=== PATIENT | male | born 1990 | race Caucasian/White ===

== ENCOUNTER 2019-06-28 19:39 | Emergency (ER) | payer MEDICARE, MEDICAID, SELFPAY ==
[2019-06-28 19:44] VITALS: BP 145/98; PULSE 104; RESP 18; TEMP 37.1; O2SAT 95
--- NOTE | 2019-06-28 20:00 | W.ED.GENAD ---
Discharge Plan Disposition Patient Disposition: HOME Discharge Details Chief Complaint: Orthopedic Clinical Impression: Loose cast Primary Care Provider: Sue Manley ED Provider: Karri Hodge Home Meds and New Rx's Prescriptions: Continued buprenorphine-naloxone [Suboxone] 1 EACH film 20 mg PO DAILY RF: 0 ibuprofen 800 MG tablet 800 mg PO TID PRN (Reason: Pain) Qty: 10 RF: 0 gabapentin 300 mg Capsule 900 mg PO TID RF: 0 Discharge Instructions Additional Instructions: Please follow-up with your orthopedic surgeon tomorrow. Return to the ER for any worsening or new concerning symptoms. Medical Decision Making 29-year-old male here 3 weeks status post thumb fracture, casted, cast is cracking over volar, medial wrist. Cast is intact over his thumb and providing immobilization to fractured digit. An Bar wrap was applied to provide support and patient was instructed to follow-up with his orthopedic surgeon tomorrow for cast removal and/or replacement. HPI General Mode of arrival: ambulatory. Date/Time Provider Initiated Documentation: 06/28/19 19:54. Limitations to Documentation: no limitations. Information obtained by: patient. HPI Narrative: 29-year-old male presents with concern that his cast is cracked. Patient notes he broke his thumb 3 weeks ago and had cast placed by Dr. Vargas at [facility]. He notes today cast seem to be loose. No pain. Related Data Home Medications Medication Instructions Recorded Confirmed buprenorphine-naloxone [Suboxone] 20 mg PO DAILY 11/08/15 04/03/17 ibuprofen 800 mg PO TID PRN #10 tablet 04/03/17 gabapentin 900 mg PO TID 06/28/19 06/28/19 Previous Rx's Medication Instructions Recorded ibuprofen 800 mg PO TID PRN #10 tablet 04/03/17 Allergies Allergy/AdvReac Type Severity Reaction Status Date / Time methocarbamol [From Robaxin] Allergy Nausea Unverified 06/28/19 19:46 General Stated Complaint: Orthopedic KACEY: 4 Review of Systems Musculoskeletal Musculoskeletal: Denies numbness and Denies tingling Neurologic Neurologic: Denies numbness and Denies tingling [facility] Medical History Ankle fracture (Acute) Drug addiction (Acute) Social History Smoking/Tobacco Use Status: Current every day Tobacco Type: cigarettes Alcohol Intake: current Alcohol Intake frequency: 0-2 drinks per day Alcohol type: beer Drug use: Daily Substance use type: marijuana Do you feel safe at home: Yes Do you feel safe in your relationship?: Yes Exam Extrem Left upper extremity: hand (thumb cast in place, intact over thumb, loose over medial volar wrist ) Details: other (distal sensation and motor intact) Course Vital Signs Vital signs: Vital Signs Temperature 37.1 C 06/28/19 19:44 Pulse 104 H 06/28/19 19:44 Respiratory Rate 18 06/28/19 19:44 Blood Pressure 145/98 H 06/28/19 19:44 Pulse Oximetry 95 06/28/19 19:44 Temperature 37.1 C 06/28/19 19:44 Temperature Source Skin 06/28/19 19:44 Pulse 104 H 06/28/19 19:44 Respiratory Rate 18 06/28/19 19:44 Respiratory Effort Non-Labored 06/28/19 19:48 Blood Pressure 145/98 H 06/28/19 19:44 Pulse Oximetry 95 06/28/19 19:44 Oxygen Delivery Method Room Air 06/28/19 19:44 Oxygen Flow Rate 0 06/28/19 19:44 Pain Level 7 06/28/19 19:44
[2019-06-28 20:09] VITALS: BP 145/98; PULSE 104; RESP 18; O2SAT 95
[2019-06-28] MEDS: Ibuprofen 600 MG TAB PO (20:09)
== END 2019-06-28 20:10 | disposition home or self-care (01) ==
PROVIDERS: Emergency Provider Student in an Organized Health Care Education/Training Program; PCP Nurse Practitioner Family
DX: S62.502A Fracture of unspecified phalanx of left thumb, initial encounter for closed fracture (principal); X58.XXXA Exposure to other specified factors, initial encounter; Z46.89 Encounter for fitting and adjustment of other specified devices
CPT/HCPCS: 99282